=== PATIENT | female | born 1960 | race African-American/Black ===

== ENCOUNTER 2018-04-03 08:40 | Observation (INO) | payer BC ==
[2018-04-03 09:12] LABS: #Basophils 0.1 thou/uL (0.0-0.2); #Eosinphils 0.2 thou/uL (0.0-0.7); #Lymphocytes 2.5 thou/uL (1.20-3.40); #Monocytes 0.5 thou/uL (0.11-0.59); #Neutrophils 2.5 thou/uL (1.40-6.50); %Lymphocytes 43.1 % (21.0-51.0); %Monocytes 9.4 % (0.0-10.0); %Neutrophils 42.5 % (42.0-75.0); Hemoglobin 13.3 g/dL (12.0-16.0); Mean Corpuscular Hemoglobin 28.3 pg (27.0-31.0); Mean Corpuscular Volume 88.5 fL (78.0-98.0); Mean Platelet Volume 9.6 fL (7.4-10.4); Platelet Count 238 thou/uL (130-400); Red Blood Cell (RBC) Count 4.69 mill/uL (4.20-5.40); White Blood Cell (WBC) Count 5.8 thou/uL (4.8-10.8)
[2018-04-03] MEDS ORDERED: Nitroglycerin 0.4 MG TAB (25 Tab Bottle) ONE (09:14)
[2018-04-03 09:27] LABS: ALT (SGPT) 26 U/L (8-55); AST (SGOT) 26 U/L (5-34); Albumin 4.9 g/dL (3.5-5.0); Alkaline Phosphatase 104 U/L (40-150); Anion Gap 13 mmol/L (10-20); BUN (Urea Nitrogen) 18 mg/dL (9.8-20.1); Bilirubin, Total 0.5 mg/dL (0.2-1.2); CK (CPK) 202 U/L (29-168); Calc. Creatinine Clearance 0 mL/min (70-130); Calcium 9.9 mg/dL (7.8-10.44); Carbon Dioxide 29 mmol/L (22-29); Chloride 104 mmol/L (98-107); Estimated GFR-MDRD Greater than 90; Glucose 100 mg/dL (70-105); Lipase 23 U/L (8-78); Potassium 3.5 mmol/L (3.5-5.1); Protein, Total 7.9 g/dL (6.0-8.3); Sodium 142 mmol/L (136-145)
[2018-04-03 09:29] LABS: CKMB 1.9 ng/mL (0-6.6); Troponin I Less than 0.010 ng/mL (< 0.028)
--- NOTE | 2018-04-03 09:31 | RAD ---
PORTABLE CHEST 1 VIEW: Date: 04/03/18 Time: 0858 hours HISTORY: Chest pain. FINDINGS: The heart size is normal. No focal areas of consolidation, pneumothoraces, or pleural effusions are s een. IMPRESSION: No radiographic evidence of acute cardiopulmonary process. POS: [facility]
--- NOTE | 2018-04-03 12:13 | HP ---
DATE OF ADMISSION: 04/03/2018 PRIMARY CARE PHYSICIAN: Kristian Woodruff M.D. REASON FOR ADMISSION: Chest pain. HISTORY OF PRESENT ILLNESS: A 57-year-old female who presented to emergency room th morning with complaint of chest pain. The patient reports that this morning when she woke up, at that time she was feeling fine. She came to work. At that point, she was experiencing left-sided barkley bsternal chest discomfort, which was about 5/10 in intensity, associated with some nausea, but no vom iting. She denies any associated diaphoresis or radiation of pain. Pain was persisted and that is w hy she decided to go to emergency room for evaluation. In the emergency room, this patient had routi ne evaluation with EKG, which was unremarkable. Chest x-ray was normal. Routine blood tests were al so unremarkable. The patient is being admitted for chest pain, rule out acute coronary syndrome. Sh selin denied any previous history of exertional dyspnea, chest pain, palpitation. She did not have any w orkup for chest pain in the past. She does have a family history of coronary artery disease. The pa fernando has a history of hypertension and she is taking medication. REVIEW OF SYSTEMS: The following complete review of systems was negative, unless otherwise mentioned in the HPI or below: Constitutional: Weight loss or gain, ability to conduct usual activities. Sk in: Rash, itching. Eyes: Double vision, pain. ENT/Mouth: Nose bleeding, neck stiffness, pain, te nderness. Cardiovascular: Palpitations, dyspnea on exertion, orthopnea. Respiratory: Shortness of breath, wheezing, cough, hemoptysis, fever or night sweats. Gastrointestinal: Poor appetite, abdom inal pain, heartburn, nausea, vomiting, constipation, or diarrhea. Genitourinary: Urgency, frequenc y, dysuria, nocturia. Musculoskeletal: Pain, swelling. Neurologic/Psychiatric: Anxiety, depressio n. Allergy/Immunologic: Skin rash, bleeding tendency. Please see my HPI for pertinent positive and negative. All other review of systems reviewed and negative except as mentioned in the HPI. ADDITIONAL INFORMATION: The patient already had coffee with breakfast this morning. ALLERGIES: No known drug allergy. CURRENT HOME MEDICATIONS: Norvasc 10 mg daily, hydrochlorothiazide 12.5 mg p.o. daily, [place] p.r.n. PAST MEDICAL HISTORY: Chronic low back pain, hypertension. PAST SURGICAL HISTORY: Left breast biopsy, arthroscopic surgery in her left knee. PAST PSYCHIATRIC HISTORY: Reviewed and negative. SOCIAL HISTORY: The patient is , lives at home with family. No history of tobacco, alcohol o r illicit drug abuse. 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 FAMILY HISTORY: The patient reports that her sister had stroke and mother had cardiomegaly. EMERGENCY ROOM COURSE: The patient is given aspirin, IV fluid and nitroglycerin. PHYSICAL EXAMINATION: VITAL SIGNS: On arrival, blood pressure 156/96, pulse 84, respiratory rate 16, temperature 98.4, sat uration 100% on room air, weight 86.1 kilograms. GENERAL: The patient is currently alert, oriented x3. HEAD: Normocephalic, atraumatic. EYES: Pupils round and reactive to light. Extraocular muscle intact. ENT: Oropharynx within normal limits. Moist mucous membrane. No oral lesion, no pharyngeal erythem a, no exudate. NECK: Supple. No JVD, no thyromegaly, no carotid bruit, no jugular venous distention. LUNGS: Clear to auscultation without any rhonchi or rales. CARDIAC: S1, S2 regular. No murmur, no gallop, no rub. ABDOMEN: Soft, bowel sounds present, nontender, nondistended. No organomegaly, no mass, no suprapub ic tenderness. BACK: Unremarkable. No CVA tenderness. EXTREMITIES: Upper extremities, passive movement of all joints are normal. Lower extremities, no ed rasheed. Good distal pulsation. No calf tenderness. SKIN: No skin rash. HEMATOLOGICAL: No lymphadenopathy. PSYCHIATRIC: Normal affect. NEUROLOGIC: Nonfocal examination. The patient moves all 4 limbs. Plantar bilateral flexors. SIGNIFICANT LABORATORY DATA: EKG showing normal sinus rhythm without any ischemic changes. Chest x- ray based on my review, no acute cardiopulmonary process. CBC, WBC 5.8, hemoglobin 13.3, platelet 23 8,000. BMP, sodium 142, potassium 3.5, chloride 104, carbon dioxide 29, BUN 18, creatinine 0.72, glu cose 100, calcium 9.9. LFT, AST 26, ALT 26, alkaline phosphatase is 104, albumin 4.9, lipase 23. CK 202, CK-MB 1.9. Troponin less than 0.010. BNP 17.4. ASSESSMENT AND PLAN: 1. Chest pain. The patient's chest pain description is atypical. She has 2 risk factors for judge ry artery disease. Based on her age and sex profile, probability of coronary artery disease is low, but needs to be excluded. She does not have any Wells criteria and PERC score is 0. She does not ne ed any more testing regarding thromboembolic disorder, but she will need exercise Cardiolite stress t est tomorrow morning as she already had coffee today. We will do serial cardiac enzymes x3. We will check lipid profile for risk stratification. 2. Hypertension. We will resume the patient's home medication of amlodipine and hydrochlorothiazide . 3. Chronic low back pain. The patient's pain will be controlled with [place] while in hospital. 4. Deep venous thrombosis prophylaxis not needed because we are expecting discharge in 24 hours. 5. Gastrointestinal prophylaxis, Pepcid 20 mg p.o. b.i.d. 6. Code status, the patient is full code. The patient does not have any surrogate decision maker. Disposition plan likely tomorrow based on stress test result. Plan of care discussed with the levi simon in detail.
[2018-04-03] MEDS ORDERED: Loratadine 10 MG TAB PO PRN (12:23)
[2018-04-03] MEDS ORDERED: HYDROcodone/Acetaminophen 5/325 mg Tablet PO PRN (12:23)
[2018-04-03] MEDS ORDERED: Ondansetron ODT 4 MG TAB PO PRN (12:23)
[2018-04-03] MEDS ORDERED: Calcium Carbonate 500 MG ChewTAB PO PRN (12:23)
[2018-04-03] MEDS ORDERED: Cepastat Lozenges 1 LOZ PO PRN (12:23)
[2018-04-03] MEDS ORDERED: Sodium Chloride 0.65% Nasal 44 ML BOT EA NARE PRN (12:23)
[2018-04-03] MEDS ORDERED: Loperamide HCl 2 MG CAP PO PRN (12:23)
[2018-04-03] MEDS ORDERED: Nitroglycerin 0.4 MG TAB (25 Tab Bottle) SL PRN (12:23)
[2018-04-03] MEDS ORDERED: Artificial Tears 18 DROP/0.9 ML EA EYE PRN (12:23)
[2018-04-03] MEDS ORDERED: Diabetic Tussin 200 MG/10 ML UDCUP PO PRN (12:23)
[2018-04-03] MEDS ORDERED: hydrALAZINE 20 MG/ML VIAL SLOW IVP PRN (12:23)
[2018-04-03] MEDS ORDERED: Zolpidem Tartrate 5 MG TAB PO PRN (12:23)
[2018-04-03] MEDS ORDERED: Acetaminophen 325 MG TAB PO PRN (12:23)
[2018-04-03] MEDS ORDERED: Eucerin (Mineral Oil/Petrolatum,White) 30 gm Jar TOP PRN (12:23)
[2018-04-03] MEDS ORDERED: Ondansetron PF 4 MG/2 ML Vial IVP PRN (12:23)
[2018-04-03] MEDS ORDERED: Bisacodyl 10 MG SUPP PR PRN (12:23)
[2018-04-03] MEDS ORDERED: Senokot S 8.6-50 MG TAB PO PRN (12:23)
[2018-04-03 12:37] VITALS: BMI 34.0
[2018-04-03 13:12] LABS: Troponin I Less than 0.010 ng/mL (< 0.028)
[2018-04-03 16:16] LABS: Troponin I Less than 0.010 ng/mL (< 0.028)
[2018-04-03] MEDS: Famotidine 20 MG TAB PO SCH (21:19)
[2018-04-04 04:56] LABS: Cardiac Risk 2.9 (Less than 4.5)
[2018-04-04 08:10] VITALS: TEMP 98.1
[2018-04-04] MEDS ORDERED: Aspirin 325 MG TAB PO SCH (09:00)
[2018-04-04] MEDS ORDERED: ADENOSINE 60 MG/20 ML VIAL ONE (10:23)
--- NOTE | 2018-04-04 10:40 | PDOC.PN ---
- Subjective Encounter Start Date: 04/04/18 Encounter Start Time: 10:40 Patient seen and examined. No new complaints. No overnight events - Objective Resuscitation Status: Resuscitation Status FULL:Full Resuscitation MAR Reviewed: Yes Vital Signs & Weight: Vital Signs (12 hours) Temp Pulse Resp BP Pulse Ox 04/04/18 07:57 98.1 F 67 18 130/68 96 04/04/18 04:42 98.4 F 68 17 114/68 95 04/03/18 23:04 97.8 F 61 18 97/52 L 96 Weight Weight 192 lb 3.2 oz I&O: 04/03/18 04/04/18 04/05/18 06:59 06:59 06:59 Intake Total 1380 Balance 1380 Result Diagrams: 04/03/18 08:52 04/03/18 08:52 EKG Reviewed by me: Yes Phys Exam - Physical Examination Constitutional: NAD HEENT: PERRLA, moist MMs, sclera anicteric Neck: no JVD, supple Respiratory: no wheezing, no rales, no rhonchi Cardiovascular: RRR, no significant murmur, no rub Gastrointestinal: soft, non-tender, no distention, positive bowel sounds Musculoskeletal: no edema, pulses present Neurological: non-focal, normal sensation, moves all 4 limbs Lymphatic: no nodes Psychiatric: normal affect, A&O x 3 Skin: no rash, normal turgor Dx/Plan (1) Chest pain Code(s): R07.9 - CHEST PAIN, UNSPECIFIED Status: Acute (2) Chronic low back pain Code(s): M54.5 - LOW BACK PAIN; G89.29 - OTHER CHRONIC PAIN Status: Chronic (3) Hypertension Code(s): I10 - ESSENTIAL (PRIMARY) HYPERTENSION Status: Chronic (4) Obesity (BMI 30-39.9) Code(s): E66.9 - OBESITY, UNSPECIFIED Status: Chronic - Plan cont current plan of care * so far work up negative * if stress test negative, will dc to home. Review of Systems - Review of Systems Eyes: negative: Pain, Vision Change, Conjunctivae Inflammation, Eyelid Inflammation, Redness, Other ENT: negative: Ear Pain, Ear Discharge, Nose Pain, Nose Discharge, Nose Congestion, Mouth Pain, Mouth Swelling, Throat Pain, Throat Swelling, Other Respiratory: negative: Cough, Dry, Shortness of Breath, Hemoptysis, SOB with Excertion, Pleuritic Pain, Sputum, Wheezing Cardiovascular: negative: chest pain, palpitations, orthopnea, paroxysmal nocturnal dyspnea, edema, light headedness, other Gastrointestinal: negative: Nausea, Vomiting, Abdominal Pain, Diarrhea, Constipation, Melena, Hematochezia, Other Genitourinary: negative: Dysuria, Frequency, Incontinence, Hematuria, Retention , Other Musculoskeletal: negative: Neck Pain, Shoulder Pain, Arm Pain, Back Pain, Hand Pain, Leg Pain, Foot Pain, Other Skin: negative: Rash, Lesions, Reggie, Bruising, Other - Medications/Allergies Allergies/Adverse Reactions: Allergies Allergy/AdvReac Type Severity Reaction Status Date / Time No Known Allergies Allergy Verified 04/03/18 12:44 Medications: Current Medications Acetaminophen (Tylenol) 650 mg PO Q4H PRN PRN Reason: Headache/Fever/Mild Pain (1-3) Hydrocodone Bitart/Acetaminophen ([place] 5/325) 1 tab PO Q4H PRN PRN Reason: Moderate Pain (4-6) Artificial Tears (Tears Naturale) 2 drop EA EYE PRN PRN PRN Reason: Dry Eyes Aspirin (Aspirin) 325 mg PO DAILY ISMAEL Bisacodyl (Dulcolax) 10 mg [place] DAILYPRN PRN PRN Reason: Constipation Calcium Carbonate (Tums) 1,000 mg PO Q4H PRN PRN Reason: Heartburn or Indigestion Famotidine (Pepcid) 20 mg PO BID [facility] Last Admin: 04/03/18 21:19 Dose: 20 mg Guaifenesin (Robitussin Sf) 200 mg PO Q4H PRN PRN Reason: Cough Hydralazine HCl (Apresoline) 10 mg SLOW IVP Q4H PRN PRN Reason: SBP > 180 and HR < 70 Loperamide HCl (Imodium) 2 mg PO PRN PRN PRN Reason: Diarrhea/Loose Stools Loratadine (Claritin) 10 mg PO DAILYPRN PRN PRN Reason: Sinus Symptoms Mineral Oil/White Petrolatum (Eucerin Cream) 0 gm TOP BIDPRN PRN PRN Reason: Dry Skin Nitroglycerin (Nitrostat) 0.4 mg SL Q5MIN PRN PRN Reason: Chest Pain Ondansetron HCl (Zofran Odt) 4 mg PO Q6H PRN PRN Reason: Nausea/Vomiting Ondansetron HCl (Zofran) 4 mg IVP Q6H PRN PRN Reason: Nausea/Vomiting Senna/Docusate Sodium (Senokot S) 2 tab PO BID PRN PRN Reason: Constipation Sodium Chloride ([place] 0.65%) 0 ml EA NARE QIDPRN PRN PRN Reason: Nasal Congestion Throat Lozenges (Cepastat Lozenges) 1 charles PO Q2H PRN PRN Reason: Sore Throat Zolpidem Tartrate (Ambien) 5 mg PO HSPRN PRN PRN Reason: Insomnia
[2018-04-04 12:03] VITALS: BP 120/65
[2018-04-04] MEDS: Famotidine 20 MG TAB PO SCH (12:38)
--- NOTE | 2018-04-04 13:34 | DIS ---
DATE OF ADMISSION: 04/03/2018 DATE OF DISCHARGE: 04/04/2018 PRIMARY CARE PHYSICIAN: Kristian Woodruff M.D. DISCHARGE DISPOSITION: Home. PRIMARY DISCHARGE DIAGNOSIS: Chest pain, ruled out acute coronary syndrome. SECONDARY DISCHARGE DIAGNOSES: Hypertension, obesity with body mass index 34. PRIMARY PROCEDURE/OPERATION: None. RADIOLOGICAL INVESTIGATION: Chest x-ray normal. Stress test negative. SIGNIFICANT LABORATORY DATA: CBC normal. BMP normal. LFT normal. Cardiac enzymes negative. LDL 97. Lipase 23. DISCHARGE MEDICATIONS: Norvasc 10 mg p.o. daily, calcium with vitamin D 1 tablet daily, hydrochlorothiazide 25 mg p.o. daily, ibuprofen on a p.r.n. basis. CONTRAINDICATIONS: None. CODE STATUS: Full code. INPATIENT CONSULTANTS: None. ALLERGIES: No known drug allergy. DISCHARGE PLAN: Post hospital, the patient will follow up with primary care physician in 1 week. HOSPITAL COURSE: A 57-year-old female who was admitted by me. Please see my HPI for further details. The patient was admitted for chest pain. Her workup came back negative. Cardiac enzyme, LFT, BMP, CBC, lipid profile were normal. Telemetry normal. Stress test came back normal. The patient is planned for discharge today. pt is seen and examined bedside and discussed test result. Her vitals and examination normal. PAT
--- NOTE | 2018-04-04 13:44 | NM ---
CARDIAC SPECT: CLINICAL HISTORY: 57-year-old black female with chest pain and hypertension. TECHNIQUE: A myocardial perfusion scan was performed using the single isotope one day protocol with technetium-9 9m sestamibi. 9 mCi were injected intravenously for the rest exam followed by 30 mCi for the stress e xam. Pharmacologic stress with Adenosine was monitored and interpreted by Dr. Pisano. FINDINGS: Homogeneous tracer distribution is seen in the myocardial segments on stress and rest images without fixed or reversible defects. GATED SPECT LVEF: 72%. WALL MOTION EXAM: Normal. IMPRESSION: Normal myocardial perfusion scan. POS: C
== END 2018-04-04 14:09 | disposition home or self-care (01) ==
LOC: ERS 08:40 → 2SW 11:00
PROVIDERS: ADMIT Internal Medicine; ATTEND Internal Medicine
DX: R07.89 Other chest pain (principal); G89.29 Other chronic pain; M54.5 Low back pain; I10 Essential (primary) hypertension; E66.9 Obesity, unspecified; Z68.34 Body mass index [BMI] 34.0-34.9, adult; Z79.899 Other long term (current) drug therapy
CPT/HCPCS: 36415; 36416; 71045; 78452; 80053; 80061; 82550; 82553; 83690; 83880; 84484; 85025; 93005; 93017; 94760; 96360; A9500; G0378; J0153

== ENCOUNTER 2019-09-12 06:38 | Emergency (ER) | payer BC, SELFPAY | END 2019-09-12 07:10 | disposition home or self-care (01) | LOC: ERS 06:38 | DX: L50.9 Urticaria, unspecified (principal); I10 Essential (primary) hypertension; Z79.899 Other long term (current) drug therapy | CPT/HCPCS: 99281 ==

== ENCOUNTER 2020-03-11 13:51 | Outpatient (CLI) | payer BC ==
--- NOTE | 2020-03-11 14:24 | RAD ---
XR Knee Lt 4 View STANDARD HISTORY: Chronic left knee pain FINDINGS: No fracture or dislocation is identified. Degenerative changes are seen manifested by osteophyte form ation and joint space narrowing, most prominent in the medial tibiofemoral and patellofemoral compartments. No joint effusion is seen. IMPRESSION: left knee osteoarthritis
--- NOTE | 2020-03-11 14:34 | RAD ---
LUMBAR SPINE 2 VIEWS: Date: 03/11/2020 HISTORY: Chronic back pain. COMPARISON: 03/19/2016. FINDINGS: Evidence for spina bifida occulta of spinous processes of T12 and L1, stable. Generalized disc osteop hytosis and facet arthrosis. No significant malalignment. IMPRESSION: Lumbar spondylosis. Somewhat progressive disc osteophytosis. POS: OFF
== END 2020-03-11 13:52 | disposition home or self-care (01) ==
LOC: BICRAD 13:51
PROVIDERS: ATTEND Family Medicine
DX: M54.9 Dorsalgia, unspecified (principal); M25.562 Pain in left knee; M47.816 Spondylosis without myelopathy or radiculopathy, lumbar region; M25.78 Osteophyte, vertebrae; M17.12 Unilateral primary osteoarthritis, left knee
CPT/HCPCS: 72100

== ENCOUNTER 2020-04-07 10:20 | Outpatient (CLI) | payer BC ==
--- NOTE | 2020-04-07 12:16 | MRI ---
MRI Lumbar Spine Noncontrast: HISTORY: Low back pain with radiation of pain to left lower extremity. Lumbar spondylosis. COMPARISON: None FINDINGS: Few incompletely imaged subcentimeter increased T2-weighted signal intensity foci are seen in the sup erior pole left kidney which are unable to be further characterized may represent tiny cysts. Remainder the retroperitoneal structures demonstrate a normal nonenhanced MRI appearance. Conus medullaris is normal in morphology and terminates at the L1 level. Paravertebral soft tissues have a normal appearance. L1-2: Mild disc osteophyte complex resulting in mild bilateral neural foraminal narrowing. Mild facet degenerative changes are present at this level. There is slight effacement of the right anterolateral aspect of the thecal sac. L2-3: Minimal disc osteophyte complex without significant central canal or neural foraminal narrowing . L3-4: There is no disc bulge or disc herniation. Central spinal canal and neural foramina are patent. L4-5: Disc osteophyte complex and prominent facet hypertrophic changes are present with mild ligament ous thickening. There is no significant central canal or neural foraminal narrowing identified. Fluid signal intensity seen in the facet joints is likely attributable to the degenerative changes. T here is minimal increased signal intensity seen within the region of the lamina and facets at the L4-5 level likely related to the degenerative changes. This is a symmetric finding. L5-S1: Loss of intervertebral disc height with mild endplate degenerative changes. Minimal disc osteo phyte complex is present with mild facet degenerative changes. Central spinal canal is patent. No significant neural foraminal narrowing is present. IMPRESSION: 1. Degenerative changes in the lumbar spine without high-grade central canal or neural foraminal narr owing. 2. Incompletely imaged subcentimeter T2-weighted signal intensity lesions left kidney. These lesions are too small to further accurately characterize.
== END 2020-04-07 10:21 | disposition home or self-care (01) ==
LOC: BICMRI 10:20
PROVIDERS: ATTEND Orthopaedic Surgery
DX: M47.816 Spondylosis without myelopathy or radiculopathy, lumbar region (principal); N28.9 Disorder of kidney and ureter, unspecified
CPT/HCPCS: 72148